=== PATIENT | female | born 1935 | race Caucasian/White ===

== ENCOUNTER 2021-08-17 10:54 | Outpatient (CLI) | payer OTHER | END 2021-08-17 10:55 | disposition home or self-care (01) | LOC: MRI 10:54 | PROVIDERS: ATTEND Surgery | DX: M47.26 Other spondylosis with radiculopathy, lumbar region (principal); M47.817 Spondylosis without myelopathy or radiculopathy, lumbosacral region; S32.059A Unspecified fracture of fifth lumbar vertebra, initial encounter for closed fracture; M43.16 Spondylolisthesis, lumbar region; M48.061 Spinal stenosis, lumbar region without neurogenic claudication; M43.17 Spondylolisthesis, lumbosacral region | CPT/HCPCS: 72100; 72131; 72148 ==

== ENCOUNTER 2021-08-17 12:32 | Emergency (ER) | END 2021-08-17 13:22 | disposition left against medical advice (07) | LOC: ERS 12:32 | DX: Z53.21 Procedure and treatment not carried out due to patient leaving prior to being seen by health care provider (principal) ==